=== PATIENT | male | born 1970 | race Caucasian/White ===

== ENCOUNTER 2019-02-21 00:11 | Emergency (ER) | payer SELFPAY ==
[2019-02-21 00:47] LABS: #Basophils 0.1 thou/uL (0.0-0.2); #Eosinphils 0.4 thou/uL (0.0-0.7); #Lymphocytes 4.7 thou/uL (1.20-3.40); #Monocytes 0.4 thou/uL (0.11-0.59); #Neutrophils 8.4 thou/uL (1.40-6.50); %Basophils 0.4 % (0.0-1.0); %Lymphocytes 33.6 % (21.0-51.0); %Monocytes 2.8 % (0.0-10.0); %Neutrophils 60.3 % (42.0-75.0); Hemoglobin 10.3 g/dL (14.0-18.0); Mean Corpuscular HGB CONC 33.2 g/dL (32.0-36.0); Mean Corpuscular Hemoglobin 30.2 pg (27.0-31.0); Mean Platelet Volume 6.1 fL (7.4-10.4); Platelet Count 117 thou/uL (130-400); RBC Distribution Width 12.4 % (11.5-14.5); Red Blood Cell (RBC) Count 3.39 mill/uL (4.70-6.10); White Blood Cell (WBC) Count 13.9 thou/uL (4.8-10.8)
[2019-02-21 00:49] LABS: Prothrombin Time 22.5 SEC (12.0-14.7)
[2019-02-21 00:50] LABS: PTT 77.2 SEC (22.9-36.1)
[2019-02-21 01:01] LABS: ALT (SGPT) 50 U/L (8-55); AST (SGOT) 67 U/L (5-34); Albumin 2.2 g/dL (3.5-5.0); Alkaline Phosphatase 95 U/L (40-110); Anion Gap 23 mmol/L (10-20); BUN (Urea Nitrogen) 10 mg/dL (8.9-20.6); Bilirubin, Total 0.2 mg/dL (0.2-1.2); Calc. Creatinine Clearance 0 mL/min (70-130); Calcium 6.7 mg/dL (7.8-10.44); Chloride 116 mmol/L (98-107); Estimated GFR-MDRD 57; Globulin 1.8 g/dL (2.4-3.5); Glucose 248 mg/dL (70-105); Sodium 145 mmol/L (136-145)
[2019-02-21 01:07] LABS: Carbon Dioxide 9 mmol/L (22-29)
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
== END 2019-02-21 00:35 | disposition expired ==
LOC: ERS 00:11
DX: S31.104A Unspecified open wound of abdominal wall, left lower quadrant without penetration into peritoneal cavity, initial encounter (principal)
CPT/HCPCS: 36430; 36556; 80053; 85025; 85610; 85730; 86850; 86900; 86901; 96374; 96375; G0390; P9016; P9048